=== PATIENT | male | born 1960 | race Caucasian/White ===

== ENCOUNTER 2016-12-14 16:19 | Emergency (ER) | payer OTHER ==
[2016-12-14 16:42] VITALS: RESP 18; TEMP 97.9
--- NOTE | 2016-12-14 16:52 | EDPHY ---
H & P Time Seen by Provider: 12/14/16 16:44 HPI/ROS: HPI Right ankle injury. 56-year-old male by private vehicle with his . This patient reports that last he thinks he stepped off of a curb awkwardly in twisted his right ankle. 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 He was not bothered by it much up until today when he noticed swelling as well as bruising to the medial aspect of the right ankle. He reports he does have some pain with weight -bearing but he is able to weight bear. Denies any loss of sensation in his foot. No knee pain. No other complaints. ROS: Constitutional: No fever, no chills. No weakness. Musculoskeletal: No back pain. No neck pain. As above. Denies other extremity pain. Skin: No rashes. No lacerations or abrasions. Neurological: No focal weakness or altered sensation. Past medical history: He denies any significant past medical history. He has been taking ibuprofen for his injured ankle. Social history: Nonsmoker. Here with his . No alcohol. Physical Exam: General Appearance: Alert, no distress. This patient is responding to questions appropriately and in full sentences. This patient appears well- hydrated and well-nourished. Eyes: Pupils equal and round no pallor or injection. No lid edema, erythema or injection. Right ankle and foot exam: Significant for faint ecchymosis and diffuse swelling over the medial malleolus. He has tenderness on palpation over this area to the area just inferior to the medial malleolus. No bony step-off or deformity noted on palpation. The bony aspects of the foot are otherwise nontender. No proximal fibula tenderness on palpation. The right foot and ankle are neurovascularly intact. Neurological: Motor sensory function is grossly intact. Cranial nerves are normal. Antalgic gait favoring the right ankle. Skin: Warm and dry, no rashes. Musculoskeletal: Neck is supple and nontender. Extremities are symmetrical. All joints range without pain or impingement. Psychiatric: No agitation. No depression. Database: EKG: Imaging: Right foot and ankle x-ray series: Negative for fracture, subluxation, dislocation. Interpreted by me. Procedures: Emergency department course: Vital signs reviewed. He was sent for x-rays after my immediate evaluation. He took ibuprofen prior to coming to the emergency department. 5:15 p.m., patient re-evaluated. Resting comfortably at this time. Results of his x-rays were discussed with him and his . Plan will be to place him in an orthopedic boot. Weight-bearing as tolerated. He will be provided crutches as needed. I discussed ibuprofen dosing. I will have him follow up with Dr. Gómez Murray or 1 of his partners with the orthopedic service for re- evaluation later this week. I discussed ibuprofen dosing with him. Return to emergency department precautions reviewed. All of his questions were answered. He was discharged in good condition. Differential Diagnosis: The differential diagnosis on this patient includes but is not limited to right ankle sprain. Fracture, subluxation, dislocation of the right ankle unlikely. This represents a partial list of diagnoses considered. These considerations are based on history, physical exam, past history, reassessment and diagnostic testing. Smoking Status: Never smoked Constitutional: Initial Vital Signs Temperature (C) 36.6 C 12/14/16 16:39 Heart Rate 76 12/14/16 16:39 Respiratory Rate 18 12/14/16 16:39 Blood Pressure 153/97 H 12/14/16 16:39 O2 Sat (%) 94 12/14/16 16:39 O2 Delivery Mode Room Air Allergies/Adverse Reactions: No Known Allergies Allergy (Verified 12/14/16 16:38) Home Medications: Medication Instructions Recorded Miscellaneous Medical Supply [NO 07/02/12 HOME MEDS] IBUPROFEN 12/14/16 Medical Decision Making - Diagnostics Imaging Results: Imaging Impressions Ankle X-Ray 12/14/16 16:45 Impression: Soft tissue swelling with no acute osseous findings. Foot X-Ray 12/14/16 16:47 Impression: No acute osseous findings. Departure - Departure Disposition: Home, Routine, Self-Care Clinical Impression: Right ankle sprain Condition: Good Instructions: Ankle Sprain (ED) Additional Instructions: Read and follow provided instructions. Follow-up with Orthopedics, Dr. Gómez Murray or 1 of his partners or your primary care physician at the end of this week for re-evaluation. Call tomorrow morning for appointment time. Ibuprofen dosin mg every 6 hours with meals for the next 3 days only. Weight-bearing to your right ankle as tolerated only. Return to the emergency department for worsening pain, swelling, discoloration or other serious concerns. Referrals: Gómez Murray MD [Medical Doctor] - As per Instructions NONE *PRIMARY CARE P,. [Primary Care Provider] - As per Instructions
[2016-12-14 17:28] VITALS: BP 148/75; PULSE 78; O2SAT 95
== END 2016-12-14 17:34 | disposition home or self-care (01) ==
LOC: CED 16:19
DX: S93.401A Sprain of unspecified ligament of right ankle, initial encounter (principal); X58.XXXA Exposure to other specified factors, initial encounter
CPT/HCPCS: 73610-PO; 73630-PO; L4386